=== PATIENT | female | born 1990 | race Two or more races ===

== ENCOUNTER 2016-05-26 08:52 | Emergency (ER) | payer MEDICAID ==
[~2016-05-26] VITALS: Ht 160 cm; Wt 59.0 kg
[~2016-05-26 08:52] MED LIST: ALPR0.5T PO; MET10T PO; OLAN20TA14 PO; PANT40TA2 PO; PROM25TA5 IVP
[2016-05-26 10:25] VITALS: BP 112/60
== END 2016-05-26 11:05 | disposition home or self-care (01) ==
LOC: ER 08:53
DX: H00.015 Hordeolum externum left lower eyelid (principal); K21.9 Gastro-esophageal reflux disease without esophagitis; Z90.49 Acquired absence of other specified parts of digestive tract; F12.10 Cannabis abuse, uncomplicated; Z98.890 Other specified postprocedural states

== ENCOUNTER 2016-06-30 07:17 | Emergency (ER) | payer MEDICAID ==
[~2016-06-30] VITALS: Ht 160 cm; Wt 59.0 kg
[2016-06-30 08:40] LABS: Basophils # (auto) 0.1 uL; Basophils % (auto) 0.4 % (0.0-2.0); Eosinophils # (auto) 0.1 uL; Eosinophils % (auto) 0.6 % (0.0-7.0); Hematocrit 39.7 % (36.0-46.0); Hemoglobin 12.7 g/dL (12.2-16.2); Lymphocytes # (auto) 1.6 uL; Lymphocytes % (auto) 10.5 % (10.0-50.0); Mean Corpuscular Hemoglobin 28.8 pg (28.0-32.0); Mean Platelet Volume 7.6 fL (7.4-10.4); Monocytes # (auto) 0.6 uL; Monocytes % (auto) 3.9 % (0.0-12.0); Neutrophils # (auto) 13.1 uL; Neutrophils % (auto) 84.6 % (37.0-80.0); Platelet Count (auto) 433 10^3/uL (140-450); Red Cell Distribution Width 13.1 % (11.6-16.0); White Blood Cell 15.4 10^3/uL (4.4-10.8)
[2016-06-30 09:00] LABS: Albumin 3.8 g/dL (3.4-5.0); BUN/Creatinine Ratio 6.9; Bilirubin, Total 0.6 mg/dL (0.2-1.0); Calcium 8.8 mg/dL (8.5-10.1); Potassium 3.4 mmol/L (3.5-5.1); Total Protein 8.5 g/dL (6.4-8.2)
[2016-06-30] MEDS ORDERED: HYDROmorphone HCL 2 MG/ML VL IV ONE (09:30)
[2016-06-30] MEDS ORDERED: PROMETHAZINE HCL 25 MG/ML 1ML IV ONE (09:30)
[2016-06-30] MEDS ORDERED: PANTOPRAZOLE SODIUM 40 MG/10 ML VIAL IV ONE (09:30)
[2016-06-30 09:32] VITALS: BP 92/71
[2016-06-30 09:36] LABS: Urine Bilirubin Negative (Negative); Urine Color Yellow (Yellow); Urine Glucose Normal (Normal); Urine Ketone Negative (Negative); Urine Mucus FEW (None Seen); Urine Nitrite Negative (Negative); Urine RBC <1 /hpf (0 - 4); Urine Squamous Epithelial Cell MOD /hpf (<5); Urine Urobilinogen Normal (Negative); Urine pH 6.5 (5.0-8.0)
[2016-06-30 09:41] LABS: Urine Blood 1+ /uL (Negative)
== END 2016-06-30 10:28 | disposition home or self-care (01) ==
LOC: EDUNIT# 07:17 → ER 07:28
DX: K21.9 Gastro-esophageal reflux disease without esophagitis (principal); F12.10 Cannabis abuse, uncomplicated; Z90.49 Acquired absence of other specified parts of digestive tract
CPT/HCPCS: 36415; 80053; 81001; 81025; 83690; 85025; 96374; 96375; 99284; C9113; J1170; J2550

== ENCOUNTER 2016-08-21 08:41 | Emergency (ER) | payer MEDICAID ==
[~2016-08-21] VITALS: Ht 160 cm; Wt 56.7 kg
[2016-08-21 09:24] LABS: Urine Bilirubin Negative (Negative); Urine Color PINK (Yellow); Urine Glucose Normal (Normal); Urine Ketone Negative (Negative); Urine Nitrite Negative (Negative); Urine RBC 14 /hpf (0 - 4); Urine Squamous Epithelial Cell MOD /hpf (<5); Urine Urobilinogen Normal (Negative); Urine pH 6.5 (5.0-8.0)
[2016-08-21 09:27] LABS: Urine Blood 3+ /uL (Negative)
[2016-08-21 09:29] LABS: Basophils # (auto) 0 uL; Basophils % (auto) 0.3 % (0.0-2.0); Eosinophils # (auto) 0.1 uL; Hematocrit 43.1 % (36.0-46.0); Hemoglobin 14.4 g/dL (12.2-16.2); Lymphocytes # (auto) 1.5 uL; Lymphocytes % (auto) 16.8 % (10.0-50.0); Mean Corpuscular Hemoglobin 30.4 pg (28.0-32.0); Mean Corpuscular Hgb Conc. 33.5 g/dL (32.0-36.0); Mean Corpuscular Volume 90.8 fL (80.0-100.0); Mean Platelet Volume 7.9 fL (7.4-10.4); Monocytes # (auto) 0.7 uL; Neutrophils # (auto) 6.8 uL; Neutrophils % (auto) 73.9 % (37.0-80.0); Platelet Count (auto) 399 10^3/uL (140-450); White Blood Cell 9.2 10^3/uL (4.4-10.8)
[2016-08-21 09:54] LABS: BUN/Creatinine Ratio 10.7; Bilirubin, Total 0.4 mg/dL (0.2-1.0); Calcium 8.9 mg/dL (8.5-10.1); Potassium 3.7 mmol/L (3.5-5.1); Total Protein 8.5 g/dL (6.4-8.2)
[2016-08-21] MEDS ORDERED: PANTOPRAZOLE SODIUM 40 MG/10 ML VIAL IV STA (11:47)
[2016-08-21] MEDS ORDERED: SODIUM CHLORIDE 0.9% 1,000 ML IVB ONE (11:47)
[2016-08-21] MEDS ORDERED: PROCHLORPERAZINE EDISYLATE 5 MG/ML 2ML VIAL IV ONE (12:00)
[2016-08-21] MEDS ORDERED: HYDROmorphone HCL 2 MG/ML VL IV ONE (12:00)
[2016-08-21 12:01] LABS: Magnesium 2.2 mg/dL (1.6-2.6)
[2016-08-21] MEDS ORDERED: SODIUM CHLORIDE 0.9% 1,000 ML IV SCH (12:27)
[2016-08-21] MEDS ORDERED: MORPHINE SULF INJ 2 MG/ML SYRINGE 1ML IV PRN (12:30)
[2016-08-21] MEDS ORDERED: HYDROcodone-ACET 5/325MG TAB PO PRN (12:30)
[2016-08-21] MEDS ORDERED: ACETAMINOPHEN 500 MG TAB PO PRN (12:30)
[2016-08-21] MEDS ORDERED: LORazepam 0.5 MG TAB PO PRN (12:30)
[2016-08-21] MEDS ORDERED: NITROGLYCERIN 0.4 MG SL TAB SL PRN (12:30)
[2016-08-21] MEDS ORDERED: LACTULOSE 20Gm/30ML SOLN PO PRN (12:30)
[2016-08-21] MEDS ORDERED: MORPHINE SULFATE 4 MG/ML SYRG IV PRN (12:30)
[2016-08-21] MEDS ORDERED: ONDANSETRON HCL 4 MG/2 ML VIAL IV PRN (12:30)
[2016-08-21] MEDS ORDERED: TEMAZEPAM 15 MG CAP PO PRN (12:30)
[2016-08-21] MEDS ORDERED: cefTRIAXone 1GM/50ML D5W 50 ML IV ONE (12:45)
[2016-08-21] MEDS ORDERED: PANTOPRAZOLE 40 MG TAB PO SCH (13:30)
[2016-08-21 13:31] VITALS: BP 114/68
[2016-08-21] MEDS ORDERED: metroNIDAZOLE 500MG/100ML 100 ML IV SCH (14:00)
[2016-08-22] MEDS ORDERED: cefTRIAXone 1GM/50ML D5W 50 ML IV SCH (09:00)
== END 2016-08-21 13:54 | disposition left against medical advice (07) ==
LOC: ER 08:47 → UNDOADMIN 08:48 → TELE 08:48 → ER 13:54
DX: N39.0 Urinary tract infection, site not specified (principal); N93.9 Abnormal uterine and vaginal bleeding, unspecified; R11.2 Nausea with vomiting, unspecified; F12.10 Cannabis abuse, uncomplicated
CPT/HCPCS: 36415; 71010; 74176; 80053; 81001; 81025; 82150; 83690; 83735; 85025; 85045; 85652; 86141; 86850; 86900; 86901; 87086; 96361; 96365; 96375; 99285; C9113; J0696; J0780; J1170; J2405; J7030

== ENCOUNTER 2016-09-22 11:58 | Emergency (ER) | payer MEDICAID ==
[~2016-09-22] VITALS: Ht 152.4 cm; Wt 75.2 kg
[2016-09-22] MEDS ORDERED: SODIUM CHLORIDE 0.9% 1,000 ML IV ONE (12:35)
[2016-09-22] MEDS ORDERED: SODIUM CHLORIDE 0.9% 1,000 ML IV STA (12:35)
[2016-09-22] MEDS ORDERED: ONDANSETRON HCL 4 MG/2 ML VIAL IV ONE (12:45)
[2016-09-22] MEDS ORDERED: HYDROmorphone HCL 2 MG/ML VL IV ONE (12:45)
[2016-09-22] MEDS ORDERED: ONDANSETRON HCL 4 MG/2 ML VIAL ONE (13:52)
[2016-09-22] MEDS ORDERED: HYDROmorphone HCL 2 MG/ML VL ONE (13:52)
[2016-09-22 14:20] LABS: Hematocrit 42.1 % (36.0-46.0); Hemoglobin 13.8 g/dL (12.2-16.2); Mean Corpuscular Hemoglobin 30.3 pg (28.0-32.0); Mean Corpuscular Hgb Conc. 32.7 g/dL (32.0-36.0); Mean Corpuscular Volume 92.5 fL (80.0-100.0); Platelet Count (auto) 344 10^3/uL (140-450); Red Cell Distribution Width 14.8 % (11.6-16.0); SUSPECT VIEW TRANSMISSION; White Blood Cell 23.2 10^3/uL (4.4-10.8)
[2016-09-22 14:27] LABS: Metamyelocytes % 0; Myelocytes % 0; Promyelocytes % 0; Reactive Lymphocytes 0
[2016-09-22 14:46] LABS: Platelet Estimate Adequate; RBC Morphology Normal
[2016-09-22] MEDS ORDERED: METOCLOPRAMIDE HCL 5MG/ml INJ 2ml VIAL IV ONE (15:00)
[2016-09-22 15:10] VITALS: BP 106/59
[2016-09-22 15:26] LABS: BUN/Creatinine Ratio 10.7; Bilirubin, Total 0.5 mg/dL (0.2-1.0); Calcium 8.8 mg/dL (8.5-10.1); Potassium 3.8 mmol/L (3.5-5.1); Total Protein 7.9 g/dL (6.4-8.2)
[2016-09-22 15:27] LABS: Albumin 3.9 g/dL (3.4-5.0)
== END 2016-09-22 15:08 | disposition home or self-care (01) ==
LOC: ER 11:59
DX: R11.2 Nausea with vomiting, unspecified (principal); F12.10 Cannabis abuse, uncomplicated; K21.9 Gastro-esophageal reflux disease without esophagitis; Z90.49 Acquired absence of other specified parts of digestive tract; Z98.890 Other specified postprocedural states
CPT/HCPCS: 36415; 80053; 85007; 85027; 96374; 99284; J1170; J2405; J7030; 96361

== ENCOUNTER 2016-09-29 10:32 | Emergency (ER) | payer MEDICAID ==
[~2016-09-29] VITALS: Ht 160 cm; Wt 59.0 kg
[2016-09-29] MEDS ORDERED: PANTOPRAZOLE SODIUM 40 MG/10 ML VIAL IV STA (10:47)
[2016-09-29] MEDS ORDERED: SODIUM CHLORIDE 0.9% 1,000 ML IVB ONE (10:47)
[2016-09-29] MEDS ORDERED: HYDROmorphone HCL 2 MG/ML VL IV ONE (11:00)
[2016-09-29 12:06] LABS: Basophils # (auto) 0 uL; Basophils % (auto) 0.6 % (0.0-2.0); Eosinophils # (auto) 0 uL; Eosinophils % (auto) 0.4 % (0.0-7.0); Hemoglobin 13.7 g/dL (12.2-16.2); Lymphocytes # (auto) 1.3 uL; Lymphocytes % (auto) 15.3 % (10.0-50.0); Mean Corpuscular Hemoglobin 30.9 pg (28.0-32.0); Mean Corpuscular Hgb Conc. 33.4 g/dL (32.0-36.0); Mean Corpuscular Volume 92.4 fL (80.0-100.0); Mean Platelet Volume 8.5 fL (7.4-10.4); Monocytes # (auto) 0.5 uL; Monocytes % (auto) 5.6 % (0.0-12.0); Neutrophils # (auto) 6.6 uL; Neutrophils % (auto) 78.1 % (37.0-80.0); Platelet Count (auto) 369 10^3/uL (140-450); Red Cell Distribution Width 14.4 % (11.6-16.0); White Blood Cell 8.4 10^3/uL (4.4-10.8)
[2016-09-29 12:25] LABS: Albumin 4.2 g/dL (3.4-5.0); BUN/Creatinine Ratio 13.2; Bilirubin, Total 0.5 mg/dL (0.2-1.0); Calcium 9.1 mg/dL (8.5-10.1); Potassium 3.7 mmol/L (3.5-5.1); Total Protein 8.1 g/dL (6.4-8.2)
[2016-09-29 16:15] VITALS: BP 134/89
[2016-09-29] MEDS ORDERED: METOCLOPRAMIDE HCL 5MG/ml INJ 2ml VIAL IV ONE (16:15)
[2016-09-29] MEDS: PROCHLORPERAZINE EDISYLATE 5 MG/ML 2ML VIAL IV ONE ×2 (16:22→16:37)
[2016-09-29] MEDS ORDERED: HYDROmorphone HCL 2 MG/ML VL IM ONE (16:30)
[2016-09-29] MEDS ORDERED: PROCHLORPERAZINE EDISYLATE 5 MG/ML 2ML VIAL IV ONE (16:30)
[2016-09-29 16:49] LABS: Urine Bilirubin Negative (Negative); Urine Color Yellow (Yellow); Urine Glucose Normal (Normal); Urine Mucus FEW (None Seen); Urine Nitrite Negative (Negative); Urine RBC 3 /hpf (0 - 4); Urine Squamous Epithelial Cell MOD /hpf (<5); Urine Urobilinogen Normal (Negative); Urine pH 6.5 (5.0-8.0)
[2016-09-29 16:51] LABS: Urine Blood 2+ /uL (Negative); Urine Ketone 1+ (Negative)
== END 2016-09-29 19:35 | disposition home or self-care (01) ==
LOC: EDBD 10:32 → ER 10:36
DX: G89.29 Other chronic pain (principal); R10.31 Right lower quadrant pain; R11.2 Nausea with vomiting, unspecified; F41.9 Anxiety disorder, unspecified; R19.7 Diarrhea, unspecified; F32.9 Major depressive disorder, single episode, unspecified; K21.9 Gastro-esophageal reflux disease without esophagitis; Z90.49 Acquired absence of other specified parts of digestive tract
CPT/HCPCS: 36415; 80053; 81001; 82150; 83690; 85025; 96361; 96372; 96374; 96375; 99284; C9113; J0780; J1170; J2765; J7030

== ENCOUNTER 2016-10-13 10:14 | Emergency (ER) | payer MEDICAID ==
[~2016-10-13] VITALS: Ht 160 cm; Wt 59.0 kg
[2016-10-13 10:21] VITALS: BP 130/93
[2016-10-13 11:07] LABS: Albumin 4.1 g/dL (3.4-5.0); Calcium 8.9 mg/dL (8.5-10.1); Potassium 3.6 mmol/L (3.5-5.1)
[2016-10-13 11:09] LABS: BUN/Creatinine Ratio 13.1; Basophils # (auto) 0.1 uL; Basophils % (auto) 0.8 % (0.0-2.0); Eosinophils # (auto) 0 uL; Eosinophils % (auto) 0.3 % (0.0-7.0); Hematocrit 41.5 % (36.0-46.0); Hemoglobin 14.1 g/dL (12.2-16.2); Lymphocytes # (auto) 1.9 uL; Lymphocytes % (auto) 16.9 % (10.0-50.0); Mean Corpuscular Hemoglobin 31.5 pg (28.0-32.0); Mean Corpuscular Volume 92.7 fL (80.0-100.0); Mean Platelet Volume 8.6 fL (7.4-10.4); Monocytes # (auto) 0.6 uL; Monocytes % (auto) 5.8 % (0.0-12.0); Neutrophils # (auto) 8.4 uL; Neutrophils % (auto) 76.2 % (37.0-80.0); Platelet Count (auto) 421 10^3/uL (140-450); Red Cell Distribution Width 13.8 % (11.6-16.0); White Blood Cell 11.1 10^3/uL (4.4-10.8)
[2016-10-13 11:12] LABS: Bilirubin, Total 0.8 mg/dL (0.2-1.0); Total Protein 7.9 g/dL (6.4-8.2)
== END 2016-10-13 17:26 | disposition left against medical advice (07) ==
LOC: ER 10:14
DX: R11.2 Nausea with vomiting, unspecified (principal); R10.9 Unspecified abdominal pain; Z53.21 Procedure and treatment not carried out due to patient leaving prior to being seen by health care provider
CPT/HCPCS: 36415; 80053; 84702; 85025

== ENCOUNTER 2017-01-05 10:51 | Observation (INO) | payer MEDICAID ==
[~2017-01-05] VITALS: Ht 167.6 cm; Wt 59.0 kg
[2017-01-05] MEDS ORDERED: PANTOPRAZOLE 40 MG/10 ML VIAL IV STA (11:24)
[2017-01-05] MEDS ORDERED: SODIUM CHLORIDE 0.9% 1,000 ML IVB ONE (11:24)
[2017-01-05] MEDS ORDERED: SODIUM CHLORIDE 0.9% 1,000 ML IV ONE (11:30)
[2017-01-05] MEDS ORDERED: METOCLOPRAMIDE HCL 5MG/ml INJ 2ml VIAL IV ONE (11:30)
[2017-01-05] MEDS ORDERED: ONDANSETRON HCL 4 MG/2 ML VIAL IV ONE ×2 (11:30)
[2017-01-05] MEDS ORDERED: HYDROmorphone HCL 2 MG/ML VL IV ONE (11:30)
[2017-01-05 12:04] LABS: Basophils # (auto) 0 uL; Basophils % (auto) 0.2 % (0.0-2.0); CONDITION Y; Eosinophils # (auto) 0 uL; Eosinophils % (auto) 0.1 % (0.0-7.0); Hematocrit 40.8 % (36.0-46.0); Lymphocytes # (auto) 1.3 uL; Lymphocytes % (auto) 9.4 % (10.0-50.0); Mean Corpuscular Hgb Conc. 34.3 g/dL (32.0-36.0); Mean Corpuscular Volume 96.3 fL (80.0-100.0); Mean Platelet Volume 8.7 fL (7.4-10.4); Monocytes # (auto) 0.6 uL; Monocytes % (auto) 4.3 % (0.0-12.0); Platelet Count (auto) 403 10^3/uL (140-450); Red Cell Distribution Width 12.7 % (11.6-16.0); White Blood Cell 13.9 10^3/uL (4.4-10.8)
[2017-01-05 12:15] VITALS: BP 109/75
[2017-01-05 12:15] LABS: Albumin 4.2 g/dL (3.4-5.0); Amylase 49 U/L (25-115); Anion Gap 10 (5-15); Aspartate Aminotransferase 11 U/L (15-37); BUN/Creatinine Ratio 10.6; Blood Urea Nitrogen 7 mg/dL (7-18); Calcium 8.8 mg/dL (8.5-10.1); Carbon Dioxide 22 mmol/L (21-32); Chloride 111 mmol/L (98-107); GFR African American 138 mL/min; GFR Non-African American 114 mL/min; Glucose 174 mg/dL (74-106); Potassium 3.4 mmol/L (3.5-5.1); Sodium 143 mmol/L (136-145)
[2017-01-05 12:18] LABS: Alkaline Phosphatase 66 U/L (45-117); Bilirubin, Total 0.6 mg/dL (0.2-1.0); Total Protein 7.8 g/dL (6.4-8.2)
[2017-01-05] MEDS ORDERED: POTASSIUM CHL 20MEQ/100ML 100 ML IV ONE (13:15)
[2017-01-05] MEDS ORDERED: cefTRIAXone 1GM/50ML D5W 50 ML IV ONE (13:15)
[2017-01-07] MEDS ORDERED: ONDA8TAB6 PO (02:55)
== END 2017-01-05 17:52 | disposition left against medical advice (07) | DRG 422 ==
LOC: EDBD 10:51 → ER 10:55 → OVERFLOW 11:28 → ER 17:52
PROVIDERS: ADMIT Family Medicine; ATTEND Family Medicine
DX: E86.0 Dehydration (principal); F32.9 Major depressive disorder, single episode, unspecified; R10.12 Left upper quadrant pain; R11.2 Nausea with vomiting, unspecified; F41.9 Anxiety disorder, unspecified; K21.9 Gastro-esophageal reflux disease without esophagitis
CPT/HCPCS: 36415; 74176; 80053; 80320; 82150; 83605; 83690; 85025; 87040; 96361; 96374; 96375; 99285; C9113; G0378; J1170; J2405; J2765; J7030

== ENCOUNTER 2017-01-12 06:57 | Emergency (ER) | payer MEDICAID ==
[~2017-01-12] VITALS: Ht 162.6 cm; Wt 68.0 kg
[~2017-01-12 06:57] MED LIST changes: -ALPR0.5T PO; -MET10T PO; -OLAN20TA14 PO; +ONDA8TAB6 PO; -PROM25TA5 IVP
[2017-01-12] MEDS ORDERED: HYDROmorphone HCL 2 MG/ML VL IV ONE ×2 (07:15→08:45)
[2017-01-12] MEDS ORDERED: PROCHLORPERAZINE EDISYLATE 5 MG/ML 2ML VIAL IV ONE (07:15)
[2017-01-12] MEDS ORDERED: PANTOPRAZOLE 40 MG/10 ML VIAL IV STA (07:15)
[2017-01-12] MEDS ORDERED: SODIUM CHLORIDE 0.9% 1,000 ML IV ONE ×2 (07:30→09:45)
[2017-01-12 07:34] LABS: Basophils # (auto) 0 uL; Basophils % (auto) 0.2 % (0.0-2.0); CONDITION Y; Eosinophils # (auto) 0 uL; Eosinophils % (auto) 0.4 % (0.0-7.0); Hematocrit 43.4 % (36.0-46.0); Hemoglobin 15.1 g/dL (12.2-16.2); Lymphocytes % (auto) 10.4 % (10.0-50.0); Mean Corpuscular Hemoglobin 33.2 pg (28.0-32.0); Mean Corpuscular Hgb Conc. 34.9 g/dL (32.0-36.0); Mean Corpuscular Volume 95.2 fL (80.0-100.0); Mean Platelet Volume 7.8 fL (7.4-10.4); Monocytes # (auto) 1.2 uL; Monocytes % (auto) 11.8 % (0.0-12.0); Neutrophils # (auto) 7.5 uL; Neutrophils % (auto) 77.2 % (37.0-80.0); Platelet Count (auto) 351 10^3/uL (140-450); Red Cell Distribution Width 12.4 % (11.6-16.0); White Blood Cell 9.8 10^3/uL (4.4-10.8)
[2017-01-12 08:01] LABS: Albumin 4.3 g/dL (3.4-5.0); BUN/Creatinine Ratio 8.1; Bilirubin, Total 0.8 mg/dL (0.2-1.0); Magnesium 2.3 mg/dL (1.6-2.6); Potassium 4.7 mmol/L (3.5-5.1); Total Protein 8.8 g/dL (6.4-8.2)
[2017-01-12 08:22] LABS: Urine Bilirubin Negative (Negative); Urine Blood 3+ /uL (Negative); Urine Color Yellow (Yellow); Urine Glucose Normal (Normal); Urine Ketone 1+ (Negative); Urine Mucus FEW (None Seen); Urine Nitrite Negative (Negative); Urine RBC 8 /hpf (0 - 4); Urine Squamous Epithelial Cell FEW /hpf (<5)
[2017-01-12] MEDS ORDERED: LORazepam 2MG/ML-1ML VIAL IV ONE (08:45)
[2017-01-12] MEDS ORDERED: METOCLOPRAMIDE HCL 5MG/ml INJ 2ml VIAL IV ONE (08:45)
[2017-01-12 10:33] VITALS: BP 127/56
== END 2017-01-12 10:49 | disposition home or self-care (01) ==
LOC: EDBD 06:57 → ER 06:57
DX: K58.9 Irritable bowel syndrome, unspecified (principal); K21.9 Gastro-esophageal reflux disease without esophagitis; Z90.49 Acquired absence of other specified parts of digestive tract; Z79.899 Other long term (current) drug therapy; F12.10 Cannabis abuse, uncomplicated
CPT/HCPCS: 36415; 80053; 80307; 81001; 83690; 83735; 85025; 94761; 96361; 96374; 96375; 96376; 99284; C9113; J0780; J1170; J2060; J2765; J7030

== ENCOUNTER 2017-02-26 09:36 | Emergency (ER) | payer MEDICAID ==
[~2017-02-26] VITALS: Ht 160 cm; Wt 59.0 kg
[2017-02-26] MEDS ORDERED: PANTOPRAZOLE 40 MG/10 ML VIAL IV STA (09:46)
[2017-02-26 09:54] VITALS: BP 92/55
[2017-02-26] MEDS ORDERED: HYDROmorphone HCL 2 MG/ML VL IV ONE (10:00)
[2017-02-26] MEDS ORDERED: PROCHLORPERAZINE EDISYLATE 5 MG/ML 2ML VIAL IV ONE (10:00)
[2017-02-26 10:36] LABS: BUN/Creatinine Ratio 6.9; Bilirubin, Total 0.5 mg/dL (0.2-1.0); Calcium 8.6 mg/dL (8.5-10.1); Potassium 3.6 mmol/L (3.5-5.1); Total Protein 7.9 g/dL (6.4-8.2)
[2017-02-26 10:52] LABS: Basophils # (auto) 0 uL; Basophils % (auto) 0.5 % (0.0-2.0); Eosinophils # (auto) 0.1 uL; Eosinophils % (auto) 0.6 % (0.0-7.0); Hematocrit 37.4 % (36.0-46.0); Hemoglobin 12.7 g/dL (12.2-16.2); Lymphocytes % (auto) 10.8 % (10.0-50.0); Mean Corpuscular Hemoglobin 32.8 pg (28.0-32.0); Mean Corpuscular Hgb Conc. 33.9 g/dL (32.0-36.0); Mean Corpuscular Volume 96.6 fL (80.0-100.0); Mean Platelet Volume 8.3 fL (6.9-10.8); Monocytes # (auto) 0.6 uL; Monocytes % (auto) 6.5 % (0.0-12.0); Neutrophils # (auto) 7.6 uL; Neutrophils % (auto) 81.6 % (37.0-80.0); Platelet Count (auto) 317 10^3/uL (140-450); Red Cell Distribution Width 13.1 % (11.8-14.3); White Blood Cell 9.4 10^3/uL (4.4-10.8)
== END 2017-02-26 11:50 | disposition home or self-care (01) ==
LOC: ER 09:36 → EDBD 09:36 → ER 11:50
DX: R11.2 Nausea with vomiting, unspecified (principal); F12.10 Cannabis abuse, uncomplicated; R10.84 Generalized abdominal pain; K21.9 Gastro-esophageal reflux disease without esophagitis; Z90.49 Acquired absence of other specified parts of digestive tract
CPT/HCPCS: 36415; 80053; 82150; 83690; 85025; 94761; 96374; 96375; 99284; C9113; J0780; J1170; J7030

== ENCOUNTER 2017-02-27 03:15 | Emergency (ER) | payer MEDICAID ==
[~2017-02-27] VITALS: Ht 160 cm; Wt 56.7 kg
[2017-02-27 04:25] LABS: Basophils # (auto) 0 uL; Basophils % (auto) 0.1 % (0.0-2.0); Eosinophils # (auto) 0 uL; Hematocrit 42.2 % (36.0-46.0); Hemoglobin 14.5 g/dL (12.2-16.2); Lymphocytes # (auto) 0.6 uL; Lymphocytes % (auto) 3.9 % (10.0-50.0); Mean Corpuscular Hemoglobin 32.8 pg (28.0-32.0); Mean Corpuscular Hgb Conc. 34.5 g/dL (32.0-36.0); Mean Corpuscular Volume 95.2 fL (80.0-100.0); Mean Platelet Volume 8.2 fL (6.9-10.8); Monocytes # (auto) 0.8 uL; Monocytes % (auto) 5.1 % (0.0-12.0); Neutrophils # (auto) 14.6 uL; Neutrophils % (auto) 90.9 % (37.0-80.0); Platelet Count (auto) 426 10^3/uL (140-450); Red Cell Distribution Width 13.1 % (11.8-14.3); White Blood Cell 16.1 10^3/uL (4.4-10.8)
[2017-02-27 04:31] LABS: Potassium 3.6 mmol/L (3.5-5.1)
[2017-02-27 04:34] LABS: BUN/Creatinine Ratio 7.3
[2017-02-27 04:45] LABS: Total Protein 9.5 g/dL (6.4-8.2)
[2017-02-27] MEDS ORDERED: PANTOPRAZOLE 40 MG/10 ML VIAL IV STA (08:41)
[2017-02-27] MEDS ORDERED: SODIUM CHLORIDE 0.9% 1,000 ML IVB ONE (08:41)
[2017-02-27] MEDS ORDERED: HYDROmorphone HCL 2 MG/ML VL IV ONE (08:45)
[2017-02-27] MEDS ORDERED: PROMETHAZINE HCL 25 MG/ML 1ML IV PRN (08:45)
[2017-02-27] MEDS ORDERED: LORazepam 2MG/ML-1ML VIAL IV ONE (09:00)
[2017-02-27 09:20] VITALS: BP 90/51
== END 2017-02-27 11:42 | disposition home or self-care (01) ==
LOC: ER 03:21
DX: F12.10 Cannabis abuse, uncomplicated (principal); T40.7X5A Adverse effect of cannabis (derivatives), initial encounter; K21.9 Gastro-esophageal reflux disease without esophagitis; K50.90 Crohn's disease, unspecified, without complications; Z90.49 Acquired absence of other specified parts of digestive tract
CPT/HCPCS: 36415; 80053; 83735; 85025; 94761; 96361; 96374; 96375; 99284; C9113; J1170; J2060; J2550

== ENCOUNTER 2017-03-04 11:30 | Emergency (ER) | payer MEDICAID ==
[~2017-03-04] VITALS: Ht 160 cm; Wt 59.0 kg
[2017-03-04 11:50] VITALS: BP 107/57
[2017-03-04] MEDS ORDERED: ONDANSETRON HCL 4 MG/2 ML VIAL IM ONE (12:30)
== END 2017-03-04 12:50 | disposition home or self-care (01) ==
LOC: ER 11:30
DX: R11.2 Nausea with vomiting, unspecified (principal); F12.10 Cannabis abuse, uncomplicated; K21.9 Gastro-esophageal reflux disease without esophagitis; Z90.49 Acquired absence of other specified parts of digestive tract
CPT/HCPCS: 96372; 99283; J2405

== ENCOUNTER 2017-04-20 09:19 | Emergency (ER) | payer MEDICAID ==
[~2017-04-20] VITALS: Ht 160 cm; Wt 88.5 kg
[2017-04-20 10:00] LABS: Basophils # (auto) 0.1 uL; Basophils % (auto) 0.6 % (0.0-2.0); Eosinophils # (auto) 0.1 uL; Eosinophils % (auto) 0.5 % (0.0-7.0); Hemoglobin 13.7 g/dL (12.2-16.2); Lymphocytes # (auto) 2.1 uL; Lymphocytes % (auto) 15.2 % (10.0-50.0); Mean Corpuscular Hemoglobin 32.7 pg (28.0-32.0); Mean Corpuscular Hgb Conc. 33.5 g/dL (32.0-36.0); Mean Corpuscular Volume 97.5 fL (80.0-100.0); Mean Platelet Volume 7.7 fL (6.9-10.8); Monocytes % (auto) 7.5 % (0.0-12.0); Neutrophils # (auto) 10.6 uL; Neutrophils % (auto) 76.2 % (37.0-80.0); Platelet Count (auto) 389 10^3/uL (140-450); Red Cell Distribution Width 12.8 % (11.8-14.3); White Blood Cell 13.9 10^3/uL (4.4-10.8)
[2017-04-20] MEDS ORDERED: METOCLOPRAMIDE HCL 5MG/ml INJ 2ml VIAL IV ONE (10:00)
[2017-04-20] MEDS ORDERED: MORPHINE SULF INJ 2 MG/ML SYRINGE 1ML IV ONE (10:00)
[2017-04-20] MEDS ORDERED: SODIUM CHLORIDE 0.9% 1,000 ML IV ONE (10:00)
[2017-04-20 10:04] LABS: Urine Bilirubin Negative (Negative); Urine Blood Negative /uL (Negative); Urine Color Yellow (Yellow); Urine Glucose Normal (Normal); Urine Ketone TRACE (Negative); Urine Mucus MODERATE (None Seen); Urine Nitrite Negative (Negative); Urine RBC 1 /hpf (0 - 4); Urine Squamous Epithelial Cell MANY /hpf (<5); Urine Urobilinogen Normal (Negative); Urine pH 6.5 (5.0-8.0)
[2017-04-20] MEDS ORDERED: PROMETHAZINE HCL 25 MG/ML 1ML IV ONE (10:15)
[2017-04-20 10:23] LABS: Albumin 4.2 g/dL (3.4-5.0); BUN/Creatinine Ratio 7.9; Bilirubin, Total 0.6 mg/dL (0.2-1.0); Calcium 9.3 mg/dL (8.5-10.1); Potassium 3.5 mmol/L (3.5-5.1); Total Protein 8.4 g/dL (6.4-8.2)
[2017-04-20] MEDS ORDERED: cefTRIAXone 1GM/50ML D5W 50 ML IV ONE (11:30)
[2017-04-20 13:08] VITALS: BP 158/93
== END 2017-04-20 13:27 | disposition home or self-care (01) ==
LOC: ER 09:19
DX: R10.13 Epigastric pain (principal); R11.2 Nausea with vomiting, unspecified; K21.9 Gastro-esophageal reflux disease without esophagitis; Z79.899 Other long term (current) drug therapy; Z90.49 Acquired absence of other specified parts of digestive tract
CPT/HCPCS: 36415; 80053; 81001; 84702; 85025; 93005; 96361; 96365; 96375; 99285; J0696; J2270; J2550; J2765; J7030

== ENCOUNTER 2017-06-23 07:24 | Emergency (ER) | payer MEDICAID ==
[~2017-06-23] VITALS: Ht 162.6 cm; Wt 59.0 kg
[2017-06-23] MEDS ORDERED: PROMETHAZINE HCL 25 MG/ML 1ML IV ONE (07:45)
[2017-06-23] MEDS ORDERED: METOCLOPRAMIDE HCL 5MG/ml INJ 2ml VIAL IV ONE (07:45)
[2017-06-23] MEDS ORDERED: NALBUPHINE HCL 10 MG/1ml INJECTION IV ONE (07:45)
[2017-06-23 08:25] LABS: Urine Bacteria NONE SEEN /hpf (None Seen); Urine Blood Negative /uL (Negative); Urine Mucus FEW (None Seen); Urine Sperm PRESENT /hpf (None Seen); Urine WBC 4 /hpf (0 - 5)
[2017-06-23 08:32] LABS: Basophils # (auto) 0 uL; Basophils % (auto) 0.5 % (0.0-2.0); Eosinophils # (auto) 0 uL; Eosinophils % (auto) 0.2 % (0.0-7.0); Hematocrit 40.9 % (36.0-46.0); Hemoglobin 14.1 g/dL (12.2-16.2); Lymphocytes % (auto) 10.5 % (10.0-50.0); Mean Corpuscular Hemoglobin 33.2 pg (28.0-32.0); Mean Corpuscular Hgb Conc. 34.4 g/dL (32.0-36.0); Mean Corpuscular Volume 96.5 fL (80.0-100.0); Monocytes # (auto) 0.8 uL; Monocytes % (auto) 8.5 % (0.0-12.0); Neutrophils # (auto) 7.6 uL; Neutrophils % (auto) 80.3 % (37.0-80.0); Platelet Count (auto) 311 10^3/uL (140-450); Red Blood Cells 4.23 10^6/uL (4.0-5.20); Red Cell Distribution Width 12.6 % (11.8-14.3); White Blood Cell 9.5 10^3/uL (4.4-10.8)
[2017-06-23] MEDS ORDERED: METOCLOPRAMIDE HCL 10 MG TAB PO ONE (08:45)
[2017-06-23] MEDS ORDERED: SODIUM CHLORIDE 0.9% 1,000 ML IV ONE ×2 (08:45)
[2017-06-23 08:52] LABS: Albumin 4.4 g/dL (3.4-5.0); BUN/Creatinine Ratio 10.3; Bilirubin, Total 0.6 mg/dL (0.2-1.0); Calcium 8.7 mg/dL (8.5-10.1); Potassium 3.3 mmol/L (3.5-5.1); Total Protein 8.3 g/dL (6.4-8.2)
[2017-06-23] MEDS ORDERED: cefTRIAXone 1GM/10ml IVPUSH 10 ML IV ONE (09:15)
[2017-06-23] MEDS ORDERED: POTASSIUM CHL 10% (20 MEQ/15ML) 15ml ORAL SOLN PO ONE (09:15)
[2017-06-23 11:32] VITALS: BP 94/47
== END 2017-06-23 11:47 | disposition home or self-care (01) ==
LOC: EDBD 07:24 → ER 07:24
DX: R11.2 Nausea with vomiting, unspecified (principal); R10.13 Epigastric pain; R19.7 Diarrhea, unspecified; K21.9 Gastro-esophageal reflux disease without esophagitis; Z90.49 Acquired absence of other specified parts of digestive tract; Z79.899 Other long term (current) drug therapy
CPT/HCPCS: 36415; 80053; 81001; 83690; 85025; 96361; 96374; 96375; 99285; J2300; J2550; J7030; J8597

== ENCOUNTER 2017-08-28 07:11 | Emergency (ER) | payer MEDICAID ==
[~2017-08-28] VITALS: Ht 162.6 cm; Wt 72.6 kg
[2017-08-28] MEDS ORDERED: METOCLOPRAMIDE HCL 5MG/ml INJ 2ml VIAL IV ONE ×2 (07:30→11:15)
[2017-08-28] MEDS ORDERED: MORPHINE SULFATE 4 MG/ML SYR/VIAL IV ONE (07:30)
[2017-08-28 07:45] LABS: Basophils # (auto) 0.1 uL; Basophils % (auto) 0.6 % (0.0-2.0); Eosinophils # (auto) 0.1 uL; Eosinophils % (auto) 0.8 % (0.0-7.0); Lymphocytes # (auto) 2.5 uL; Lymphocytes % (auto) 20.1 % (10.0-50.0); Mean Corpuscular Hemoglobin 33.1 pg (28.0-32.0); Mean Corpuscular Hgb Conc. 34.2 g/dL (32.0-36.0); Mean Corpuscular Volume 96.8 fL (80.0-100.0); Monocytes # (auto) 1.1 uL; Monocytes % (auto) 8.5 % (0.0-12.0); Neutrophils # (auto) 8.8 uL; Platelet Count (auto) 347 10^3/uL (140-450); Red Blood Cells 4.24 10^6/uL (4.0-5.20); Red Cell Distribution Width 12.4 % (11.8-14.3); White Blood Cell 12.6 10^3/uL (4.4-10.8)
[2017-08-28 07:47] LABS: Urine Bacteria FEW /hpf (None Seen); Urine Blood Negative /uL (Negative); Urine Mucus FEW (None Seen); Urine Specific Gravity 1.023 (1.001-1.035); Urine WBC 14 /hpf (0 - 5)
[2017-08-28 08:02] LABS: Albumin 4.3 g/dL (3.4-5.0); BUN/Creatinine Ratio 11.7; Calcium 9.4 mg/dL (8.5-10.1); Potassium 3.4 mmol/L (3.5-5.1)
[2017-08-28 08:06] LABS: Bilirubin, Total 0.4 mg/dL (0.2-1.0)
[2017-08-28 08:12] VITALS: BP 122/94
[2017-08-28] MEDS ORDERED: PROMETHAZINE HCL 25 MG/ML 1ML ONE (08:53)
[2017-08-28] MEDS ORDERED: PROMETHAZINE HCL 25 MG/ML 1ML IV ONE (09:00)
[2017-08-28] MEDS ORDERED: cefTRIAXone 1GM/10ml IVPUSH 10 ML IV ONE (10:45)
[2017-08-28] MEDS: POTASSIUM CHL 10% (20 MEQ/15ML) 15ml ORAL SOLN PO ONE ×2 (10:45→10:54)
[2017-08-28] MEDS ORDERED: NALBUPHINE HCL 10 MG/1ml INJECTION IV ONE (11:15)
[2017-08-28] MEDS ORDERED: POTASSIUM CHL 10 Meq TABLET PO ONE (12:00)
== END 2017-08-28 12:40 | disposition home or self-care (01) ==
LOC: ER 07:11 → EDBD 07:11 → ER 12:40
DX: G43.A0 Cyclical vomiting, in migraine, not intractable (principal); E87.6 Hypokalemia; N39.0 Urinary tract infection, site not specified; F12.10 Cannabis abuse, uncomplicated
CPT/HCPCS: 36415; 80053; 81001; 85025; 96374; 96375; 96376; 99284; J2270; J2300; J2550; J2765; J7030

== ENCOUNTER 2017-10-30 14:50 | Emergency (ER) | payer MEDICAID ==
[~2017-10-30] VITALS: Ht 160 cm; Wt 72.6 kg
[2017-10-30] MEDS ORDERED: SODIUM CHLORIDE 0.9% 1,000 ML IV ONE ×2 (14:58)
[2017-10-30] MEDS ORDERED: HYDROmorphone HCL 2 MG/ML VL IV ONE (15:00)
[2017-10-30] MEDS ORDERED: METOCLOPRAMIDE HCL 5MG/ml INJ 2ml VIAL IV ONE (15:00)
[2017-10-30 15:22] LABS: Basophils # (auto) 0 uL; Basophils % (auto) 0.2 % (0.0-2.0); Eosinophils # (auto) 0 uL; Hematocrit 41.7 % (36.0-46.0); Hemoglobin 14.2 g/dL (12.2-16.2); Lymphocytes # (auto) 0.8 uL; Lymphocytes % (auto) 3.7 % (10.0-50.0); Mean Corpuscular Hemoglobin 33.5 pg (28.0-32.0); Mean Corpuscular Volume 98.6 fL (80.0-100.0); Monocytes # (auto) 0.9 uL; Monocytes % (auto) 4.4 % (0.0-12.0); Neutrophils # (auto) 19.3 uL; Neutrophils % (auto) 91.7 % (37.0-80.0); Platelet Count (auto) 316 10^3/uL (140-450); Red Blood Cells 4.23 10^6/uL (4.0-5.20); Red Cell Distribution Width 12.8 % (11.8-14.3); White Blood Cell 21.1 10^3/uL (4.4-10.8)
[2017-10-30 15:44] LABS: Alanine Aminotransferase 19 U/L (13-56); Albumin 4.5 g/dL (3.4-5.0); Alkaline Phosphatase 73 U/L (45-117); Anion Gap 14 (5-15); Aspartate Aminotransferase 15 U/L (15-37); BUN/Creatinine Ratio 8.8; Bilirubin, Total 0.8 mg/dL (0.2-1.0); Blood Urea Nitrogen 7 mg/dL (7-18); Calcium 8.9 mg/dL (8.5-10.1); Carbon Dioxide 19 mmol/L (21-32); Chloride 106 mmol/L (98-107); GFR African American 111 mL/min; GFR Non-African American 91 mL/min; Glucose 177 mg/dL (74-106); Potassium 3.4 mmol/L (3.5-5.1); Sodium 139 mmol/L (136-145); Total Protein 8.4 g/dL (6.4-8.2)
[2017-10-30] MEDS ORDERED: MEPERIDINE HCL (25 MG/ML) 1ML VIAL IV ONE (16:30)
[2017-10-30] MEDS ORDERED: KETOROLAC TROMETH 30 MG/ML 1ML VIAL IV ONE (17:15)
[2017-10-30] MEDS ORDERED: PROMETHAZINE HCL 25 MG/ML 1ML IV ONE (17:15)
[2017-10-30] MEDS ORDERED: ONDANSETRON HCL 4 MG/2 ML VIAL IV ONE (18:15)
[2017-10-30] MEDS ORDERED: MEPERIDINE HCL (25 MG/ML) 1ML VIAL IV PRN (18:45)
[2017-10-30] MEDS ORDERED: PANTOPRAZOLE 40 MG/10 ML VIAL IV ONE (19:30)
[2017-10-30 19:31] LABS: Urine Bacteria NONE SEEN /hpf (None Seen); Urine Blood TRACE /uL (Negative); Urine Mucus FEW (None Seen); Urine Specific Gravity 1.015 (1.001-1.035); Urine WBC 1 /hpf (0 - 5)
[2017-10-30 19:32] VITALS: BP 143/83
== END 2017-10-30 19:41 | disposition home or self-care (01) ==
LOC: EDBD 14:50 → ER 14:56
DX: F12.188 Cannabis abuse with other cannabis-induced disorder (principal); K21.9 Gastro-esophageal reflux disease without esophagitis; Z90.49 Acquired absence of other specified parts of digestive tract
CPT/HCPCS: 36415; 80053; 81001; 84484; 85025; 96361; 96374; 96375; 99285; C9113; J1885; J2175; J2405; J2550; J2765; J7030

== ENCOUNTER 2017-11-04 13:29 | Emergency (ER) | payer MEDICAID ==
[~2017-11-04] VITALS: Ht 160 cm; Wt 72.6 kg
[2017-11-04] MEDS ORDERED: PROCHLORPERAZINE EDISYLATE 5 MG/ML 2ML VIAL IV ONE (14:30)
[2017-11-04] MEDS ORDERED: SODIUM CHLORIDE 0.9% 1,000 ML IV ONE (15:00)
[2017-11-04 15:15] LABS: Basophils # (auto) 0 uL; Basophils % (auto) 0.3 % (0.0-2.0); Eosinophils # (auto) 0 uL; Hematocrit 35.6 % (36.0-46.0); Hemoglobin 12.3 g/dL (12.2-16.2); Lymphocytes # (auto) 0.5 uL; Lymphocytes % (auto) 5.2 % (10.0-50.0); Mean Corpuscular Hemoglobin 33.5 pg (28.0-32.0); Mean Corpuscular Hgb Conc. 34.4 g/dL (32.0-36.0); Mean Corpuscular Volume 97.5 fL (80.0-100.0); Monocytes # (auto) 0.3 uL; Monocytes % (auto) 3.1 % (0.0-12.0); Neutrophils % (auto) 91.4 % (37.0-80.0); Platelet Count (auto) 267 10^3/uL (140-450); Red Blood Cells 3.65 10^6/uL (4.0-5.20); Red Cell Distribution Width 12.2 % (11.8-14.3); White Blood Cell 9.8 10^3/uL (4.4-10.8)
[2017-11-04 15:34] LABS: Albumin 3.6 g/dL (3.4-5.0); BUN/Creatinine Ratio 4.5; Bilirubin, Total 0.3 mg/dL (0.2-1.0); Calcium 7.9 mg/dL (8.5-10.1); Total Protein 6.8 g/dL (6.4-8.2)
[2017-11-04 15:36] LABS: Urine Amorphous Crystal FEW /hpf (None Seen); Urine Bacteria NONE SEEN /hpf (None Seen); Urine Blood 3+ /uL (Negative); Urine Hyaline Cast FEW /lpf (0 - 2); Urine Mucus FEW (None Seen); Urine Specific Gravity 1.018 (1.001-1.035); Urine WBC 4 /hpf (0 - 5)
[2017-11-04] MEDS ORDERED: SODIUM CHLORIDE 0.9% 1,000 ML IVB ONE (16:03)
[2017-11-04] MEDS ORDERED: DONNATAL 5ml ORAL Elix (BELLADONNA ALK-PHENOBARB) PO ONE (16:15)
[2017-11-04] MEDS ORDERED: FAMOTIDINE 20 MG TAB PO ONE (16:15)
[2017-11-04] MEDS ORDERED: ALUM & MAG HYDROX-SIMETH LIQ(MAALOX) 30 ML PO ONE (16:15)
[2017-11-04] MEDS ORDERED: LIDOCAINE VISCOUS 2% 15ML UD PO ONE (16:15)
[2017-11-04] MEDS ORDERED: NALBUPHINE HCL 10 MG/1ml INJECTION IV ONE (16:15)
[2017-11-04] MEDS: PROMETHAZINE HCL 25 MG/ML 1ML IV PRN ×2 (16:32→20:07)
[2017-11-04] MEDS ORDERED: POTASSIUM CHL 10% (20 MEQ/15ML) 15ml ORAL SOLN PO ONE (16:45)
[2017-11-04 17:06] LABS: Alcohol, Urine < 3.0 mg/dL (0-5); Amphetamine Screen, Urine NEGATIVE (NEGATIVE); Barbiturate Scree,Urine NEGATIVE (NEGATIVE); Benzodiazephine Screen, Urine NEGATIVE (NEGATIVE); Cannabinoid Screen, Urine POSITIVE (NEGATIVE); Cocaine Screen, Urine NEGATIVE (NEGATIVE); Opiate Scree,Urine NEGATIVE (NEGATIVE); Phencyclidine Screen, Urine NEGATIVE (NEGATIVE)
[2017-11-04] MEDS ORDERED: POTASSIUM CHL 20 Meq TABLET PO ONE (19:00)
[2017-11-04 20:20] VITALS: BP 115/65
== END 2017-11-04 21:59 | disposition home or self-care (01) ==
LOC: EDBD 13:29 → ER 13:35
DX: R10.9 Unspecified abdominal pain (principal); F12.188 Cannabis abuse with other cannabis-induced disorder; R11.10 Vomiting, unspecified; E87.6 Hypokalemia; K21.9 Gastro-esophageal reflux disease without esophagitis; Z90.49 Acquired absence of other specified parts of digestive tract
CPT/HCPCS: 36415; 74176; 80053; 80307; 81001; 81025; 83690; 85025; 96361; 96374; 96375; 99285; J0780; J2300; J2550; J7030